=== PATIENT | male | born 1970 | race Two or more races ===

== ENCOUNTER 2023-02-28 09:36 | Emergency (ER) | payer OTHER ==
[~2023-02-28] VITALS: Ht 177.8 cm; Wt 117.1 kg
[2023-02-28 10:43] VITALS: BP 108/78; PULSE 68; RESP 16; O2SAT 97
[2023-02-28] MEDS ORDERED: IBUPROFEN 800 MG TAB PO ONE ×2 (11:30→11:53)
[2023-02-28] MEDS ORDERED: TETANUS-DIPTH-ACEL PERTUSSIS 0.5ML SYR Tdap IM ONE ×2 (11:30→11:52)
[2023-02-28] MEDS ORDERED: IBUP-1456 PO (11:39)
[2023-02-28] MEDS ORDERED: CEPH500C PO (11:39)
[2023-02-28 11:56] VITALS: TEMP 99.2
== END 2023-02-28 12:06 | disposition home or self-care (01) ==
LOC: ER 09:36
DX: S62.624A Displaced fracture of middle phalanx of right ring finger, initial encounter for closed fracture (principal); Z79.1 Long term (current) use of non-steroidal anti-inflammatories (NSAID); Z79.899 Other long term (current) drug therapy; W20.8XXA Other cause of strike by thrown, projected or falling object, initial encounter; Y93.89 Activity, other specified; Y92.89 Other specified places as the place of occurrence of the external cause; Y99.8 Other external cause status
CPT/HCPCS: 29130; 73140; 90471; 90715